=== PATIENT | male | born 1955 | race Caucasian/White ===

== ENCOUNTER → 2021-08-30 | Outpatient (CLI) | payer MEDICARE, OTHER ==
[~2021-08-30] MED LIST: IOHEXOL 300 MG/ML 75 ML VIAL. IV ONE
--- NOTE | 2021-08-30 16:56 | RAD ---
PQRS Compliance Statement: One or more of the following individualized dose reduction techniques were utilized for this examinat ion: 1. Automated exposure control 2. Adjustment of the mA and/or kV according to patient size 3. Use of iterative reconstruction technique CT ABDOMEN+PELVIS W Clinical Indication: Reason: PERIUMBILLICAL ABDOMINAL PAIN- DRINKING @ 1500 Comparison: None. Technique: Helical CT imaging of the abdomen and pelvis is performed after 75 cc of Omnipaque 300 IV contrast. Oral contrast also administered. Findings: There is lingular calcified granuloma. Tiny right middle lobe calcified granulomas. Lung bases otherw ise clear. Cardiac size is normal. The liver, gallbladder, spleen, pancreas, adrenal glands, abdominal aorta, and kidneys are normal. The stomach is unremarkable. There is no dilated small bowel. The appendix is normal. There is modera te colon stool volume. No colon wall thickening is seen. There is sigmoid colon diverticulosis. No ab dominal adenopathy or free fluid. The urinary bladder is normal. The prostate is enlarged and heterogeneously enhancing and protrudes a t the base of the urinary bladder. There is no pelvic free fluid. No acute bone abnormality. Vacuum disc phenomenon of L2/L3, L3/L4, and L5/S1. IMPRESSION: 1. No acute abdominal or pelvic abnormality. 2. Sigmoid colon diverticulosis. 3. Moderate prostatomegaly. Suggest correlation with PSA. Electronically signed by: Kevan Aguilar MD (08/30/2021 4:54 PM) [id number]
== END ==
LOC: RAD 14:29
PROVIDERS: ATTEND Family Medicine
DX: K57.30 Diverticulosis of large intestine without perforation or abscess without bleeding (principal); N40.0 Benign prostatic hyperplasia without lower urinary tract symptoms
CPT/HCPCS: 74177; Q9967

== ENCOUNTER → 2021-09-06 | Outpatient (CLI) | payer MEDICARE, OTHER ==
[~2021-09-06] MED LIST changes: -IOHEXOL 300 MG/ML 75 ML VIAL. IV ONE; +MORPHINE SULFATE 4 MG/ML DISP.SYRIN. IV ONE
--- NOTE | 2021-09-06 13:32 | RAD ---
EXAM: HEPATOBILIARY SCINTIGRAPHY. HISTORY: Right flank and abdominal pain. TECHNIQUE: 5 mCi technetium-99m Choletec were administered intravenously and scintigraphic images of the abdomen obtained. FINDINGS: Some unlabeled pertechnetate is noted within the bladder. There is prompt hepatic clearance of tracer from the blood pool. There is homogeneous distribution throughout the liver. The gallbladd er did not fill through 60 minutes. 4 mg morphine were administered intravenously and imaging continu ed for an additional 30 minutes. Activity fills the gallbladder at the completion of the study. IMPRESSION: 1. Delayed filling of the gallbladder. The cystic duct is patent. Electronically signed by: Yari Brown MD (09/06/2021 1:30 PM) [id number]
== END ==
LOC: NM 10:01
PROVIDERS: ATTEND Family Medicine
DX: K82.8 Other specified diseases of gallbladder (principal); K76.89 Other specified diseases of liver; R10.33 Periumbilical pain
CPT/HCPCS: 78227; A9537; J2270